=== PATIENT | male | born 1975 | race African-American/Black ===

== ENCOUNTER 2017-07-15 15:07 | Inpatient (IN) | payer OTHER ==
[~2017-07-15] VITALS: Ht 167.6 cm; Wt 78.0 kg
--- NOTE | 2017-07-15 15:18 | Emergency Room Report ---
History of Present Illness General Source: Patient Present Illness HPI 42-year-old male, history of chronic alcohol abuse, also has had seizures in the past the last seizure was one year ago, presenting with seizure. EMS states that patient had a witnessed seizure by the mother, one minute, generalized tonic-clonic, did not fall or hit his head, when EMS arrived patient was postictal/a little confused, however in route to the hospital he came back to his baseline. Patient states he normally drinks at least 1 pint of alcohol a day however his last drink was yesterday. States that at that time more than one year ago he was on Dilantin for seizures however stopped and has not taken it for more than a year. Currently patient is denying any fever chills neck pain headache abdominal pain chest pain shortness of breath. His tongue on the left-hand side. No urinary incontinence Allergies: Coded Allergies: No Known Allergies (Unverified , 07/15/17) Patient History Past Medical History: see triage record Past Surgical History: none Pertinent Family History: none Reviewed Nursing Documentation: PMH: Agreed, PSxH: Agreed Review of Systems All Other Systems: negative except mentioned in HPI Physical Exam Sp02 EP Interpretation: reviewed, normal General Appearance: alert, GCS 15, non-toxic, mild distress, other - anxious Head: normocephalic, atraumatic Eyes: bilateral eye normal inspection, bilateral eye PERRL, bilateral eye EOMI ENT: normal pharynx, normal voice, moist mucus membranes, other - +L tongue abrasion Neck: normal inspection, full range of motion, supple Respiratory: normal inspection, lungs clear, normal breath sounds, no respiratory distress, no retraction, no wheezing, speaking full sentences, chest symmetrical Cardiovascular #1: normal inspection, regular rate, rhythm, normal capillary refill Cardiovascular #2: 2+ radial (R), 2+ radial (L) Gastrointestinal: normal inspection, non tender, soft, non-distended, no guarding Musculoskeletal: normal inspection, back normal, normal range of motion, non- tender Neurologic: normal inspection, alert, oriented x3, responsive, service agent III-XII nml as tested, motor strength/tone normal, sensory intact, normal gait, speech normal Psychiatric: normal inspection, judgement/insight normal, memory normal Skin: normal inspection, normal color, no rash, warm/dry, well hydrated, normal turgor Procedures Critical Care Time Critical Care Time 40 minutes of CC time 42-year-old male, seizure, found to have an STEMI VS: Normal PLAN: IV access, labs, troponin, EKG, contact [facility] or higher level of care Anticipate admission to Tele vs. EDA CC time also includes review of labs, review of EMR, discussion with family and paperwork from SNF, d/w hospitalist CC could include dosing of pressors, additional Abx CC time does not include procedures Medical Decision Making Diagnostic Impression: Primary Impression: NSTEMI (non-ST elevated myocardial infarction) Additional Impressions: Seizure Alcohol withdrawal ER Course 42-year-old male, history of chronic alcohol abuse, presents with seizure DDX: seizure, likely secondary to alcohol withdrawal Electrolyte disturbance: hypoglycemia vs. hyponatremia vs. hypocalcemia vs. hypomagnesemia Cardiac: Arrythmia/acs Intracranial pathology: intracranial bleed, stroke Plan: BGM EK Labs, tox labs I will hold the CT scan for now, as there was no reported head trauma, patient has had seizures in the past, and there is no neurological signs or symptoms at this time ER course: Librium given No further seizures in ED Has been stable during ED stay. AOx4, no neurological signs or symptoms pt has been NAD during ED stay, never complaining of any pain or sob.has been comfortable initial troponin 0.5, now increased to >1.9 --- 4 hours later asa and heparin given faxed initial EKG to [facility] I spoke with cardiology attending from [facility], EKG not acute STEMI, patient is not in acute distress at this time, aspirin heparin given, patient will still be likely transfer to [facility] for higher level of care as he may need a cath however not acute STEMI notification I spoke to Dr. Bowden cardiology from [facility], has accepted patient for transfer. Disposition: Patient will be transferred to [facility] for higher level of care Please note that this Emergency Department Report was dictated using Feel[employer] teacher technology software, occasionally this can lead to erroneous entry secondary to interpretation by the dictation equipment. EKG Diagnostic Results EP Interpretation: Yes Rate: normal Rhythm: NSR ST Segments: concave CONOR V2 no recip changes ASA given to patient: Y Rhythm Strip EP Interpretation: Yes Rate: 63 Rhythm: NSR, no PVCs, no ectopy Laboratory Tests Test 07/15/17 14:25 07/15/17 17:10 07/15/17 19:30 07/15/17 20:20 White Blood Count 10.8 K/UL (4.8-10.8) Red Blood Count 4.88 M/UL (4.70-6.10) Hemoglobin 13.7 G/DL (14.2-18.0) L Hematocrit 44.4 % (42.0-52.0) Mean Corpuscular Volume 91 FL (80-99) Mean Corpuscular Hemoglobin 28.1 PG (27.0-31.0) Mean Corpuscular Hemoglobin Concent 30.9 G/DL (32.0-36.0) L Red Cell Distribution Width 13.9 % (11.6-14.8) Platelet Count 281 K/UL (150-450) Mean Platelet Volume 4.9 FL (6.5-10.1) L Neutrophils (%) (Auto) 75.8 % (45.0-75.0) H Lymphocytes (%) (Auto) 13.0 % (20.0-45.0) L Monocytes (%) (Auto) 9.9 % (1.0-10.0) Eosinophils (%) (Auto) 0.3 % (0.0-3.0) Basophils (%) (Auto) 1.0 % (0.0-2.0) Sodium Level 136 MMOL/L (136-145) Potassium Level 4.7 MMOL/L (3.5-5.1) Chloride Level 100 MMOL/L (98-107) Carbon Dioxide Level 26 MMOL/L (21-32) Anion Gap 10 mmol/L (5-15) Blood Urea Nitrogen 10 mg/dL (7-18) Creatinine 1.0 MG/DL (0.55-1.30) Estimate Glomerular Filtration Rate > 60 mL/min (>60) Glucose Level 79 MG/DL (74-106) Calcium Level 9.0 MG/DL (8.5-10.1) Total Bilirubin 0.6 MG/DL (0.2-1.0) Aspartate Amino Transferase (AST) 69 U/L (15-37) H Alanine Aminotransferase (ALT) 78 U/L (12-78) Alkaline Phosphatase 51 U/L (46-116) Troponin I 0.583 ng/mL (0.000-0.056) 1.949 ng/mL (0.000-0.056) Total Protein 7.9 G/DL (6.4-8.2) Albumin 4.2 G/DL (3.4-5.0) Globulin 3.7 g/dL Albumin/Globulin Ratio 1.1 (1.0-2.7) Serum Alcohol < 3 mg/dL Urine Color Pale yellow Urine Appearance Clear Urine pH 5 (4.5-8.0) Urine Specific [place] 1.020 (1.005-1.035) Urine Protein 2+ (NEGATIVE) H Urine Glucose (UA) Negative (NEGATIVE) Urine Ketones 1+ (NEGATIVE) H Urine Occult Blood 3+ (NEGATIVE) H Urine Nitrite Negative (NEGATIVE) Urine Bilirubin Negative (NEGATIVE) Urine Urobilinogen Normal MG/DL (0.0-1.0) Urine Leukocyte Esterase Negative (NEGATIVE) Urine RBC 2-4 /HPF (0 - 0) H Urine WBC 0-2 /HPF (0 - 0) Urine Squamous Epithelial Cells None /LPF (NONE/OCC) Urine Amorphous Sediment Few /LPF (NONE) H Urine Bacteria Few /HPF (NONE) Urine Opiates Screen Negative (NEGATIVE) Urine Barbiturates Screen Negative (NEGATIVE) Phencyclidine (PCP) Screen Negative (NEGATIVE) Urine Amphetamines Screen Negative (NEGATIVE) Urine Benzodiazepines Screen Negative (NEGATIVE) Urine Cocaine Screen Negative (NEGATIVE) Urine Marijuana (THC) Screen Positive (NEGATIVE) H Prothrombin Time Pending Prothrombin Time INR Pending PTT Pending Disposition: XFER SHT-TRM HOSP Condition: Serious RetinoStaci M.D. Jul 15, 2017 15:18
[2017-07-15 16:00] VITALS: BP 132/78
[2017-07-15] MEDS ORDERED: chlordiazePOXIDE 25mg Cap ORAL ONE (16:30)
[2017-07-15 16:53] LABS: EOSINOPHILS % (AUTO) 0.3 % (0.0-3.0); MEAN CORPUSCULAR HEMOGLOBIN 28.1 PG (27.0-31.0); MEAN CORPUSCULAR HGB CONC 30.9 G/DL (32.0-36.0); MEAN CORPUSCULAR VOLUME 91 FL (80-99); MEAN PLATELET VOLUME 4.9 FL (6.5-10.1); MONOCYTES % (AUTO) 9.9 % (1.0-10.0); NEUTROPHILS % (AUTO) 75.8 % (45.0-75.0); PLATELET COUNT 281 K/UL (150-450); RED BLOOD COUNT 4.88 M/UL (4.70-6.10); RED CELL DISTRIBUTION WIDTH 13.9 % (11.6-14.8); WHITE BLOOD COUNT 10.8 K/UL (4.8-10.8)
[2017-07-15 17:04] LABS: ANION GAP 10 mmol/L (5-15); CARBON DIOXIDE 26 MMOL/L (21-32); CHLORIDE 100 MMOL/L (98-107); GLOMERULAR FILTRATION RATE > 60 mL/min (>60); POTASSIUM 4.7 MMOL/L (3.5-5.1); SODIUM 136 MMOL/L (136-145)
[2017-07-15 17:08] LABS: ALANINE AMINOTRANSFERASE 78 U/L (12-78); ALBUMIN/GLOBULIN RATIO 1.1 (1.0-2.7); ASPARTATE AMINO TRANSFERASE 69 U/L (15-37); TOTAL PROTEIN 7.9 G/DL (6.4-8.2)
[2017-07-15 17:17] LABS: APPEARANCE,URINE CLEAR; KETONES,URINE 1+ (NEGATIVE); LEUKOCYTE ESTERASE ,URINE NEGATIVE (NEGATIVE); NITRITE,URINE NEGATIVE (NEGATIVE); PH,URINE 5 (4.5-8.0); PROTEIN,URINE 2+ (NEGATIVE); UROBILINOGEN,URINE NORMAL MG/DL (0.0-1.0)
[2017-07-15 17:25] LABS: AMORPHOUS SEDIMENT,UR FEW /LPF; BACTERIA,URINE FEW /HPF; WBC,URINE 0-2 /HPF (0 - 0)
[2017-07-15 17:41] LABS: ALCOHOL < 3 mg/dL
[2017-07-15 18:00] VITALS: BP 130/74
[2017-07-15 19:00] VITALS: BP 151/80
[2017-07-15] MEDS ORDERED: Heparin 25,000u/D5W 500ml 500 ML IV SCH (20:15)
[2017-07-15] MEDS ORDERED: Heparin 5000 units/ml inj IV ONE (20:15)
[2017-07-15 20:49] VITALS: BP 120/70
[2017-07-15 21:17] LABS: INR 0.9 (0.9-1.1); PROTHROMBIN TIME 9.8 SEC (9.30-11.50)
[2017-07-15 23:00] VITALS: BP 118/67
[2017-07-16] MEDS ORDERED: Nitroglycerin Subl 0.4mg tab SL PRN (00:15)
[2017-07-16] MEDS ORDERED: LORazepam 20 MG in NS 90 ML IV PRN (00:15)
[2017-07-16 01:00] VITALS: BP 117/70
[2017-07-16 03:00] VITALS: BP 127/69
[2017-07-16 05:00] VITALS: BP 119/79
[2017-07-16 06:42] LABS: BASOPHILS % (AUTO) 1.5 % (0.0-2.0); EOSINOPHILS % (AUTO) 1.1 % (0.0-3.0); LYMPHOCYTES % (AUTO) 22.7 % (20.0-45.0); MEAN CORPUSCULAR HEMOGLOBIN 30.1 PG (27.0-31.0); MEAN CORPUSCULAR HGB CONC 32.8 G/DL (32.0-36.0); MEAN CORPUSCULAR VOLUME 92 FL (80-99); MEAN PLATELET VOLUME 5.6 FL (6.5-10.1); MONOCYTES % (AUTO) 11.5 % (1.0-10.0); NEUTROPHILS % (AUTO) 63.2 % (45.0-75.0); PLATELET COUNT 289 K/UL (150-450); RED BLOOD COUNT 4.55 M/UL (4.70-6.10); RED CELL DISTRIBUTION WIDTH 14.2 % (11.6-14.8); WHITE BLOOD COUNT 7.1 K/UL (4.8-10.8)
[2017-07-16 06:51] LABS: ANION GAP 9 mmol/L (5-15); CALCIUM 7.9 MG/DL (8.5-10.1); CARBON DIOXIDE 25 MMOL/L (21-32); CHLORIDE 104 MMOL/L (98-107); CREATININE 0.9 MG/DL (0.55-1.30); GLOMERULAR FILTRATION RATE > 60 mL/min (>60); POTASSIUM 3.7 MMOL/L (3.5-5.1); SODIUM 138 MMOL/L (136-145)
[2017-07-16 06:52] LABS: MAGNESIUM 1.8 MG/DL (1.5-2.4)
[2017-07-16 06:59] VITALS: BP 148/84
[2017-07-16 07:44] LABS: PROTHROMBIN TIME 10.3 SEC (9.30-11.50)
[2017-07-16] MEDS ORDERED: Folic Acid 1 MG, Magnesium Sulfate 2,000 MG, Multivitamin - 12 Injection 10 ML in NS w/... IV ONE (08:00)
[2017-07-16] MEDS ORDERED: Thiamine HCl 100 MG in NS 55 ML IVPB ONE (08:00)
[2017-07-16] MEDS ORDERED: D5 1/2NS 1,000 ML IV SCH (08:00)
--- NOTE | 2017-07-16 08:33 | Cardiology Progress Note ---
Subjective Subjective The patient with seizure and ETOH abuse. No chest pain at present time. Will follow trop and echo and ECG he Objective Last 24 Hour Vital Signs Date Time Temp Pulse Resp B/P (MAP) Pulse Ox O2 Delivery O2 Flow Rate FiO2 07/16/17 06:59 60 17 148/84 97 Room Air 07/16/17 05:00 68 20 119/79 100 Room Air 07/16/17 03:00 64 22 127/69 99 Room Air 07/16/17 01:00 60 20 117/70 99 Room Air 07/15/17 23:00 68 20 118/67 97 Room Air 07/15/17 20:49 72 17 120/70 99 Room Air 07/15/17 19:00 66 18 151/80 99 Room Air 07/15/17 18:00 79 16 130/74 98 Room Air 07/15/17 16:00 98.4 80 16 132/78 98 Room Air 07/15/17 16:00 80 16 Room Air 07/15/17 15:22 85 16 142/81 100 Room Air Laboratory Tests Test 07/15/17 14:25 07/15/17 17:10 07/15/17 19:30 07/15/17 20:20 White Blood Count 10.8 K/UL (4.8-10.8) Red Blood Count 4.88 M/UL (4.70-6.10) Hemoglobin 13.7 G/DL (14.2-18.0) L Hematocrit 44.4 % (42.0-52.0) Mean Corpuscular Volume 91 FL (80-99) Mean Corpuscular Hemoglobin 28.1 PG (27.0-31.0) Mean Corpuscular Hemoglobin Concent 30.9 G/DL (32.0-36.0) L Red Cell Distribution Width 13.9 % (11.6-14.8) Platelet Count 281 K/UL (150-450) Mean Platelet Volume 4.9 FL (6.5-10.1) L Neutrophils (%) (Auto) 75.8 % (45.0-75.0) H Lymphocytes (%) (Auto) 13.0 % (20.0-45.0) L Monocytes (%) (Auto) 9.9 % (1.0-10.0) Eosinophils (%) (Auto) 0.3 % (0.0-3.0) Basophils (%) (Auto) 1.0 % (0.0-2.0) Sodium Level 136 MMOL/L (136-145) Potassium Level 4.7 MMOL/L (3.5-5.1) Chloride Level 100 MMOL/L (98-107) Carbon Dioxide Level 26 MMOL/L (21-32) Anion Gap 10 mmol/L (5-15) Blood Urea Nitrogen 10 mg/dL (7-18) Creatinine 1.0 MG/DL (0.55-1.30) Estimat Glomerular Filtration Rate > 60 mL/min (>60) Glucose Level 79 MG/DL (74-106) Calcium Level 9.0 MG/DL (8.5-10.1) Total Bilirubin 0.6 MG/DL (0.2-1.0) Aspartate Amino Transf (AST/SGOT) 69 U/L (15-37) H Alanine Aminotransferase (ALT/SGPT) 78 U/L (12-78) Alkaline Phosphatase 51 U/L (46-116) Troponin I 0.583 ng/mL (0.000-0.056) 1.949 ng/mL (0.000-0.056) Total Protein 7.9 G/DL (6.4-8.2) Albumin 4.2 G/DL (3.4-5.0) Globulin 3.7 g/dL Albumin/Globulin Ratio 1.1 (1.0-2.7) Serum Alcohol < 3 mg/dL Urine Color Pale yellow Urine Appearance Clear Urine pH 5 (4.5-8.0) Urine Specific [place] 1.020 (1.005-1.035) Urine Protein 2+ (NEGATIVE) H Urine Glucose (UA) Negative (NEGATIVE) Urine Ketones 1+ (NEGATIVE) H Urine Occult Blood 3+ (NEGATIVE) H Urine Nitrite Negative (NEGATIVE) Urine Bilirubin Negative (NEGATIVE) Urine Urobilinogen Normal MG/DL (0.0-1.0) Urine Leukocyte Esterase Negative (NEGATIVE) Urine RBC 2-4 /HPF (0 - 0) H Urine WBC 0-2 /HPF (0 - 0) Urine Squamous Epithelial Cells None /LPF (NONE/OCC) Urine Amorphous Sediment Few /LPF (NONE) H Urine Bacteria Few /HPF (NONE) Urine Opiates Screen Negative (NEGATIVE) Urine Barbiturates Screen Negative (NEGATIVE) Phencyclidine (PCP) Screen Negative (NEGATIVE) Urine Amphetamines Screen Negative (NEGATIVE) Urine Benzodiazepines Screen Negative (NEGATIVE) Urine Cocaine Screen Negative (NEGATIVE) Urine Marijuana (THC) Screen Positive (NEGATIVE) H Prothrombin Time 9.8 SEC (9.30-11.50) Prothromb Time International Ratio 0.9 (0.9-1.1) Activated Partial Thromboplast Time 26 SEC (23-33) Test 07/16/17 06:10 White Blood Count 7.1 K/UL (4.8-10.8) Red Blood Count 4.55 M/UL (4.70-6.10) L Hemoglobin 13.7 G/DL (14.2-18.0) L Hematocrit 41.7 % (42.0-52.0) L Mean Corpuscular Volume 92 FL (80-99) Mean Corpuscular Hemoglobin 30.1 PG (27.0-31.0) Mean Corpuscular Hemoglobin Concent 32.8 G/DL (32.0-36.0) Red Cell Distribution Width 14.2 % (11.6-14.8) Platelet Count 289 K/UL (150-450) Mean Platelet Volume 5.6 FL (6.5-10.1) L Neutrophils (%) (Auto) 63.2 % (45.0-75.0) Lymphocytes (%) (Auto) 22.7 % (20.0-45.0) Monocytes (%) (Auto) 11.5 % (1.0-10.0) H Eosinophils (%) (Auto) 1.1 % (0.0-3.0) Basophils (%) (Auto) 1.5 % (0.0-2.0) Prothrombin Time 10.3 SEC (9.30-11.50) Prothromb Time International Ratio 1.0 (0.9-1.1) Activated Partial Thromboplast Time 41 SEC (23-33) H Sodium Level 138 MMOL/L (136-145) Potassium Level 3.7 MMOL/L (3.5-5.1) Chloride Level 104 MMOL/L (98-107) Carbon Dioxide Level 25 MMOL/L (21-32) Anion Gap 9 mmol/L (5-15) Blood Urea Nitrogen 9 mg/dL (7-18) Creatinine 0.9 MG/DL (0.55-1.30) Estimat Glomerular Filtration Rate > 60 mL/min (>60) Glucose Level 84 MG/DL (74-106) Calcium Level 7.9 MG/DL (8.5-10.1) L Magnesium Level 1.8 MG/DL (1.5-2.4) Troponin I 0.507 ng/mL (0.000-0.056) GUERRERO CARRILLO Jul 16, 2017 08:33
[2017-07-16 08:56] VITALS: BP 124/73
[2017-07-16] MEDS ORDERED: Enoxaparin Sodium 300mg/3ml vial SUBQ SCH (09:00)
[2017-07-16] MEDS ORDERED: Aspirin EC 81mg tab ORAL SCH (09:00)
[2017-07-16 10:09] LABS: CHOLESTEROL 177 MG/DL (< 200); CHOLESTEROL/HDL RATIO 1.5 (3.3-4.4)
[2017-07-16 12:00] VITALS: BP 116/65
[2017-07-16] MEDS ORDERED: Tubing IV Secondary IV ONE (15:11)
--- NOTE | 2017-07-16 17:00 | History and Physical Report ---
DATE OF ADMISSION: 07/15/2017 CHIEF COMPLAINT: Seizures, epigastric pain, and chest pain. HISTORY OF PRESENT ILLNESS: This is a 42-year-old male with history of chronic alcohol abuse. The patient presented to the ED with seizures. He was brought in by paramedics. He had witnessed seizures. The nature of the seizures was tonic-clonic. The patient is noncompliant with previous Dilantin therapy for seizures. On his way to the ED, the patient developed upper abdominal pain. There was evidence of ST-elevation on EKG and atypical chest pain. Cardiology was called and the patient was seen by Dr. Vogt. PAST MEDICAL HISTORY: Polysubstance abuse. MEDICATIONS: None. ALLERGIES: No known drug allergies. FAMILY HISTORY: Unremarkable. SOCIAL HISTORY: He lives at home. HABITS: Significant for history of cigarette smoking and chronic alcohol abuse. REVIEW OF SYSTEMS: HEENT: Hearing and eyesight are normal. ENDOCRINE: No history of diabetes, thyroid, or adrenal problems. RESPIRATORY: He denies shortness of breath, cough, or hemoptysis. CARDIOVASCULAR: Significant for atypical chest pain. PHYSICAL EXAMINATION: GENERAL: This is a middle-aged male, who is in no acute distress. VITAL SIGNS: Blood pressure 124/73, pulse 65 and regular, respirations 20, and temperature 97.5 degrees. HEENT: The head is normocephalic and atraumatic. Pupils are equal, round, and reactive to light and accommodation consensually. NECK: Supple. Trachea midline. There is no lymphadenopathy or thyromegaly. LUNGS: Clear to auscultation and percussion. HEART: Regular rate and rhythm without rubs, murmurs, or gallops. ABDOMEN: Soft. Bowel sounds were active. EXTREMITIES: No clubbing, cyanosis, or edema. NEUROLOGICAL: He is alert and oriented x4. Cranial nerves II through XII intact. LABORATORY AND ANCILLARY DATA: CBC, CMP within normal limits. Troponin level initially 0.583, today 0.507. EKG shows normal sinus rhythm, LVH with some atypical ST elevation, which may be normal variant. ASSESSMENT: 1. Atypical chest pain. 2. Polysubstance abuse. PLAN: 1. Cardiology consultation and assessment ongoing. 2. Continue symptomatic treatment therapy. Beatriz Lucas M.D. DR: Wil JOB#: [id number] CC:
--- NOTE | 2017-07-18 09:58 | Discharge Summary ---
Discharge Summary Hospital Course Date of Admission Jul 15, 2017 at 23:00 Date of Discharge Jul 16, 2017 at 15:12 Admitting Diagnosis NSTEMI HPI Jatin Mendoza is a 42 year old male who was admitted on Jul 15, 2017 at 23:[address]vated Myocardial Infarction Hospital Course dc summary # [id number] Discharge Discharge Disposition Patient eloped Discharge Diagnoses: Discharge Instructions Discharge Instructions Special Instructions I have been assigned to complete a D/C Summary on this account. I was not involved in the patient management Teresa Burris NP (Vanchtein) Jul 18, 2017 09:58
--- NOTE | 2017-07-19 07:15 | Discharge Summary 2 SIG ---
DATE OF ADMISSION: 07/15/2017 DATE OF ELOPEMENT: 07/16/2017 REASON FOR ADMISSION: 42 years old male with a history of chronic alcohol abuse and seizure disorder,who had a last seizure one year ago, presented after seizure episode. Per paramedics, the patient had a witnessed seizure by his mother lasting about one minute and described as a generalized tonic-clonic seizure. No fall, no head injury. When paramedics arrived, the patient was postictal and slightly confused, however, en route to the hospital, he became more awake and back to his baseline. The patient with a history of chronic alcohol abuse. He drinks at least one pint of alcohol a day. His last drink was the day prior to ED visit. The patient was previously on Dilantin, but stopped for more than one year. He denied fever, chills, neck pain, headache, abdominal pain, chest pain, or shortness of breath. No urinary incontinence. Workup in the emergency room revealed elevated troponin - 0.583. EKG revealed no evidence of acute ischemic changes. Electrolytes were stable. AST -69 and ALT borderline - 78. Urinalysis negative. Urine toxicology screen was positive for marijuana. Serum alcohol level less than 3. ED doctor spoke with the [facility] utility worker film processing regarding transfer for possible NSTEMI. Patient was accepted, but there were no telemetry beds available at that time. The patient meantime was admitted to [facility] with diagnoses of elevated troponin, possible non-ST elevation myocardial infarction, seizure disorder, and alcohol abuse. HOSPITAL COURSE: The patient admitted to telemetry floor. Serial troponin were done. Next troponin elevated- 1.949 and then down -0.507. Cardiology consult was requested. The patient started on aspirin and heparin drip. The patient was given folic acid and thiamine by IV route. Magnesium supplements were provided. Magnesium level -1.8. Echocardiogram revealed preserved ejection fraction of 55%, right ventricular systolic pressure of 25. No evidence of wall motion abnormalities. Lipid panel was stable. Blood pressure was stable. The patient was on Librium on as needed basis. Assistant Professor Of English closely followed. No cardiac complaints per patient. Per utility worker film processing and primary medical doctor, likely atypical chest pain. On 07/16/2017, the patient eloped. FINAL DIAGNOSES: 1. Elevated troponin 2. Possible non-ST elevation myocardial infarction, 3. Possible atypical chest pain. 4. Seizure disorder. 5. Alcohol abuse. Beatriz Lucas M.D. I have been assigned to dictate discharge summary on this account and I was not involved in the patient's management. Teresa Burris (Vanchtein) NPelonPPelon DR: Karla JOB#: [id number] CC: [id number]
--- NOTE | 2017-07-21 00:23 | Cardiology Report ---
APPROVED REPORT EXAM: Two-dimensional and M-mode echocardiogram with Doppler and color Doppler. INDICATION CAD M-Mode DIMENSIONS IVSd1.0 (0.7-1.1cm)Left Atrium (MM)3.7 (1.6-4.0cm) LVDd4.8 (3.5-5.6cm)Aortic Root3.9 (2.0-3.7cm) PWd1.4 (0.7-1.1cm)Aortic Cusp Exc.2.7 (1.5-2.0cm) LVDs3.4 (2.5-4.0cm) PWs1.9 cm Normal left ventricular chamber size, systolic function and wall motion. Left ventricular ejection fraction estimated to be 55 %. Mild left ventricular hypertrophy by 2-D. No evidence of pericardial effusion. Mild bi-atrial enlargement. Right ventricular chamber size is within normal limits. Mild focal aortic valve sclerosis with adequate cusp excursion. Mildly thickened mitral valve leaflets with normal excursion. Mild mitral annulus and aortic root calcification. Mild aortic root dilatation. Normal pulmonic valve structure. Normal tricuspid valve structure. IVC at normal size with physiologic collapse. A color flow and spectral Doppler study was performed and revealed: No aortic regurgitation. Trace to mild mitral regurgitation. Mitral inflow indicates normal left ventricular diastolic function. Trace tricuspid regurgitation. Tricuspid systolic velocities suggests peak right ventricular systolic pressure of 25 mmHg. No pulmonic regurgitation present.
--- NOTE | 2017-07-21 00:28 | Cardiology Report ---
APPROVED REPORT EKG Measurement Heart [id number] Normal sinus rhythm with sinus arrhythmia Moderate voltage criteria for LVH, may be normal variant Cannot rule out Septal infarct, age undetermined Abnormal ECG
== END 2017-07-16 15:12 | disposition left against medical advice (07) | DRG 190 ==
LOC: EDBD 15:07 → EMR 15:20 → 2E 23:00 → EDBEDREQ 07-16 04:38 → ENRESERV 07-16 07:30
DX: I21.4 Non-ST elevation (NSTEMI) myocardial infarction (principal); F10.20 Alcohol dependence, uncomplicated; F19.10 Other psychoactive substance abuse, uncomplicated; R07.89 Other chest pain; G40.909 Epilepsy, unspecified, not intractable, without status epilepticus; Z91.14 Patient's other noncompliance with medication regimen; Z87.891 Personal history of nicotine dependence
CPT/HCPCS: 36415; 80048; 80053; 80061; 80307; 80329; 81003; 82962; 83735; 84484; 85025; 85610; 85730; 93005; 93306; 96365; 96366; 96372; 96375; 99285